=== PATIENT | female | born 1960 | race Caucasian/White ===

== ENCOUNTER 2022-07-24 04:56 | Emergency (ER) | payer BC, SELFPAY ==
[2022-07-24] VITALS (7 sets, daily range): BP systolic 105–124; BP diastolic 62–83; PULSE 62–84; RESP 16–18; TEMP 36.1–36.8; O2SAT 97–99; BMI 20.6
--- NOTE | 2022-07-24 05:24 | ED.GENADULT ---
HPI - General Adult General Time Seen by Provider: 05:25 Date Seen: 07/24/22 Chief complaint: Allergic Reaction Stated complaint: tongue is swollen Time Seen by Provider: 07/24/22 05:04 Source: patient and family Mode of arrival: ambulatory Limitations: no limitations History of Present Illness HPI narrative: 62-year-old female who comes in with tongue swelling. Patient has a history of recurrent angioedema, woke up with tongue swelling about 3 hours prior to coming emergency department. At that time swelling was worse in the right side of the tongue, some difficulty swallowing but no breathing difficulty. She took Benadryl at home as well as a dose of methylprednisolone. Continued to have symptoms and so decided to come emergency department. In route to the emergency department, she says the tongue swelling improved. She usually has an EpiPen to use for this as well but did not have one. She has been seen previously with fairly extensive testing and it sounds like has seen an cap inspector in the past, unclear whether this is allergic or angioedema. Does not take any medications currently. Related Data Home Medications Medication Instructions Recorded Confirmed dexamethasone 4 mg tablet 4 mg PO DAILY PRN 07/24/22 07/24/22 epinephrine 0.3 mg/0.3 mL 0.3 ml IM Q5-15M PRN 07/24/22 07/24/22 injection, auto-injector (EpiPen) Allergies Allergy/AdvReac Type Severity Reaction Status Date / Time No Known Drug Allergies Allergy Verified 07/24/22 05:08 Review of Systems Status of ROS: Reports: 10 or more systems reviewed and unremarkable except as noted in History and below [facility] Medical History (Updated 07/24/22 @ 05:28 by Favio Salazar MD) Angioedema ?T78.3XXA - Angioneurotic edema, initial encounter (ICD-10) 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 ?D06.9 - Carcinoma in situ of cervix, unspecified (ICD-10) Vertigo of central origin ?H81.4 - Vertigo of central origin (ICD-10) Surgical History (Updated 07/24/22 @ 05:25 by Lee Pereira RN) History of conization of cervix ?Z98.890 - Other specified postprocedural states (ICD-10) History of wisdom tooth extraction ?K08.409 - Partial loss of teeth, unspecified cause, unspecified class (ICD-10) Social History Smoking Status: Never smoker Second hand tobacco smoke exposure: No How often do you have a drink containing alcohol: never How often do you have six or more drinks on one occasion: Never AUDIT-C Alcohol total score: 0 Non-prescribed substance use: denies use Exam Narrative: Exam Narrative: General: Well-developed and well-nourished, no acute distress Head: Atraumatic and normocephalic Eyes: Pupils are equal reactive, extraocular motions intact, conjunctiva clear ENT: External nose and ears are normal, posterior pharynx without erythema or exudate. Mild swelling of the right side of the tongue, no son the posterior pharynx or uvula, no hoarse voice or focal fullness Neck: No midline cervical tenderness, full spontaneous range of motion the neck, trachea midline, no adenopathy Heart: Regular rate and rhythm no murmurs or thrills Lungs: Clear to auscultation bilaterally without wheezes or crackles Abdomen: Soft, nontender, nondistended with active bowel sounds Musculoskeletal: No tenderness, deformity, or edema Neurologic: Awake, alert, and oriented x3, no gross focal neurologic deficits, cranial nerves intact as tested Psych: Mood and affect are appropriate Skin: No rashes Const: Vital Signs, click to edit/add: Vital Signs - 24 hr 07/24/22 05:04 07/24/22 05:30 07/24/22 06:48 Temperature 98.3 F 98.0 F Pulse Rate Pulse Rate [Right Pulse Oximeter] 75 68 Respiratory Rate 18 16 Blood Pressure Blood Pressure [Ri ght Upper Arm] 124/79 114/72 Pulse Oximetry 99 97 97 Oxygen Delivery Me thod Room Air Room Air 07/24/22 06:02 07/24/22 06:32 Temperature 98.0 F Pulse Rate 74 62 Pulse Rate [Right Pulse Oximeter] Respiratory Rate 16 16 Blood Pressure 105/62 114/72 Blood Pressure [Ri ght Upper Arm] Pulse Oximetry 97 97 Oxygen Delivery Me thod Course Course Hospital Course: Patient seen examined, prior records reviewed. Patient with history of recurrent angioedema of involving the tongue.. No known trigger. Took Benadryl and methylprednisolone at home and symptoms are improving. Patient will be given epinephrine, Solu-Medrol, Benadryl, and famotidine, plan to observe in the emergency department. Reevaluation(s) Reevaluation #1: Patient recheck, tongue swelling is resolved and stable for discharge. We discussed follow-up medications and follow up with primary care the as well as allergies. Time: 06:49 Vital Signs Vital signs: Initial Vital Signs Respiratory Effort Normal, Spontaneous, Non-Labored 07/24/22 05:00 Respiratory Depth Normal 07/24/22 05:00 Respiratory Pattern Normal 07/24/22 05:00 Vital Signs Temperature 98.3 F 07/24/22 05:04 Pulse Rate 75 07/24/22 05:04 Respiratory Rate 18 07/24/22 05:04 Blood Pressure 124/79 07/24/22 05:04 Pulse Oximetry 99 07/24/22 05:04 Oxygen Delivery Method Room Air 07/24/22 05:04 Temperature 98.0 F 07/24/22 06:48 Pulse Rate 68 07/24/22 06:48 Respiratory Rate 16 07/24/22 06:48 Blood Pressure 114/72 07/24/22 06:48 Pulse Oximetry 97 07/24/22 06:48 Oxygen Delivery Method Room Air 07/24/22 06:48 Medical Decision Making Medical Records Medical records reviewed: Yes I reviewed the patient's medical records Lab Data Lab results reviewed: Yes I reviewed the patient's lab results Discharge Plan Discharge Clinical Impression: Angio-edema Prescriptions: No Action epinephrine [EpiPen] 0.3 mg/0.3 mL auto-injector 0.3 ml IM Q5-15M PRN Patient Comments: take for angioedema of the tongue Rx Instructions: do not exceed 3 doses per episode dexamethasone 4 mg tablet 4 mg PO DAILY PRN Patient Comments: take 1-2 tabs (4-8 mg) as needed (Angioedema of the tongue)
[2022-07-24] MEDS: diphenhydrAMINE 50 MG/ML inj 25 MG IVP (05:35)
[2022-07-24] MEDS: EPINEPHrine 0.3 MG PEN IM (05:35)
[2022-07-24] MEDS: METHYLPREDNISOLONE SOD SUCC 62.5 MG/ML (125) 125 MG IVP (05:37)
[2022-07-24] MEDS: FAMOTIDINE 10 MG/ML inj 20 MG IVP (05:39)
--- OUTSIDE RECORDS SUMMARY | 2022-07-24 05:58 | XMS_ITS | Continuity of Care Document ---
Author Name Unknown Organization [facility] Address [address] [address] [place] [address] Phone Care Team Providers Care Transmission Inspector Name Role Phone Lynda Garcia NP Unavailable Unavailable Medications Medication Instructions Dosage Effective Dates (start - stop) Status Comments MiralaxBisacodylMagCit Colon Prep Use as directed - Active Advance Directives Directive Yes / No Effective Date File Name No Information Encounters Encounter Description Practice Location Reason(s) For Visit Diagnoses Date Provider Providers Copied on Encounter [facility], [address] [address], [place], [place], [id number], [place] tel:[phone] [facility] Procedures No Information Jose Howell. [address] [facility], [facility] [address], [place], [place], [id number] , [place]. tel:[phone] Referring Provider: Aleyda Gibson CNP L, [address] [facility] [address], [place], [address]. tel:[phone] Family History Family Member Type Diagnosis Age At Onset No Information Payers Payer name Insurance type Covered libertarian ID Authoriza tion(s) No Information Social History Type Description Quantity Date Captured Comments Sex Female Smoking Status No Information Chief Complaint And Reason For Visit No Information Reason For Referral Reason For Referral No Information Plan Of Treatment Date Type Action Status No Information History Of Present Illness Encounter Date Complaint History Of Prese nt Illness No Information Functional Status Date Functional Assessmen t No Information Instructions Date Instruction Additional Infor mation No Information Assessments Type Assessment Date No Information Patient Care Teams Name Effective Dates (start - stop) Status Members No Information
--- OUTSIDE RECORDS SUMMARY | 2022-07-24 06:02 | XMS_ITS | Continuity of Care Document ---
Author Name Unknown Organization [facility] Address [address] [address] [place] [address] Phone Care Team Providers Care Coding And Reimbursement Specialist Name Role Phone Lynda Garcia NP Unavailable Unavailable Medications Medication Instructions Dosage Effective Dates (start - stop) Status Comments MiralaxBisacodylMagCit Colon Prep Use as directed - Active Advance Directives Directive Yes / No Effective Date File Name No Information Encounters Encounter Description Practice Location Reason(s) For Visit Diagnoses Date Provider Providers Copied on Encounter [facility], [address] [address], [place], [place], [id number], [place] tel:[phone] [facility] Procedures No Information Jose Howell. [address] [facility], [facility] [address], [place], [place], [id number] , [place]. tel:[phone] Referring Provider: Aleyda Gibson CNP L, [address] [facility] [address], [place], [address]. tel:[phone] Family History Family Member Type Diagnosis Age At Onset No Information Payers Payer name Insurance type Covered democrat ID Authoriza tion(s) No Information Social History [...]
== END 2022-07-24 07:10 | disposition home or self-care (01) ==
PROVIDERS: Emergency Provider Family Medicine
DX: T78.3XXA Angioneurotic edema, initial encounter (principal)
CPT/HCPCS: 94761; 96372; 96374; 96375; 99284; J0171; J1200; J2930; S0028